=== PATIENT | male | born 1950 | race Two or more races ===

== ENCOUNTER → 2023-09-25 | Emergency (ER) | payer OTHER ==
[~2023-09-25] VITALS: Ht 175.3 cm; Wt 108.9 kg
[~2023-09-25] MED LIST: ALDACTONE50 MG; CARVEDILOL3.125 MG; NIFEDIPINE20 MG
== END | disposition left against medical advice (07) ==
LOC: ER 17:48
DX: Z53.21 Procedure and treatment not carried out due to patient leaving prior to being seen by health care provider (principal)